=== PATIENT | female | born 1960 | race American Indian/Alaskan Native ===

== ENCOUNTER 2020-05-10 15:02 | Emergency (ER) | payer MEDICAID ==
[2020-05-10 15:09] VITALS: BP 153/81
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
== END 2020-05-10 16:03 | disposition home or self-care (01) ==
LOC: ED 15:02
DX: L30.9 Dermatitis, unspecified (principal); I10 Essential (primary) hypertension; Z98.890 Other specified postprocedural states; Z79.899 Other long term (current) drug therapy; Z87.891 Personal history of nicotine dependence; Z88.8 Allergy status to other drugs, medicaments and biological substances
CPT/HCPCS: 99282